=== PATIENT | female | born 1965 | race Caucasian/White ===

== ENCOUNTER 2017-05-07 14:51 | Emergency (ER) | payer OTHER ==
[~2017-05-07] VITALS: Ht 157.5 cm; Wt 83.9 kg
[~2017-05-07 14:51] MED LIST: ANTIVERT PO; ATARAX PO; AZITHROMYCIN1 GM PO; CATAPRES0.1 MG PO; CLONIDINE HCL0.1 MG PO; COUMADIN10 MG PO; COUMADIN5 MG PO; DOXEPIN HCL75 MG PO; EFFEXOR PO; ERYTHROMYCIN O3.5 G1 OS; FLONASE 0.05% N16 G1; HYDRALAZINE HCL50 MG PO; HYDROCHLOROTHIA25 MG PO; LISINOPRIL PO; LOPRESSOR PO; MELATONIN10 M3 PO; METOPROLOL TART25 MG PO; NORVASC PO; PHENERGAN25 MG PO; PRAVACHOL PO; PREVACID PO; PRINIVIL40 MG PO; PROTONIX PO; SALINE NASAL SPRAY; TOPROL XL PO; TYLENOL #3 PO; VIBRAMYCIN100 M1 PO; VISTARIL PO; ZESTRIL40 MG PO; ZOFRANODT PO
== END 2017-05-07 18:45 | disposition home or self-care (01) ==
LOC: CED 14:51
DX: M54.2 Cervicalgia (principal); I10 Essential (primary) hypertension; I48.91 Unspecified atrial fibrillation; F17.200 Nicotine dependence, unspecified, uncomplicated; Z79.2 Long term (current) use of antibiotics; Z79.01 Long term (current) use of anticoagulants; Z88.0 Allergy status to penicillin; Z88.1 Allergy status to other antibiotic agents; Z88.2 Allergy status to sulfonamides; T74.11XA Adult physical abuse, confirmed, initial encounter; Y07.01 Husband, perpetrator of maltreatment and neglect; Y92.009 Unspecified place in unspecified non-institutional (private) residence as the place of occurrence of the external cause
CPT/HCPCS: 90471; 90715; 99283